=== PATIENT | female | born 1955 | race Caucasian/White ===

== ENCOUNTER 2018-01-02 13:06 | Inpatient (IN) ==
[2018-01-02] MEDS ORDERED: Ondansetron ODT 4 MG TAB.RAPDIS SL PRN (17:19)
[2018-01-02] MEDS ORDERED: Magic Mouthwash 10 ML UD Cup PO PRN (17:24)
[2018-01-02] MEDS ORDERED: Sennosides 8.6 MG TABLET PO PRN (17:28)
[2018-01-02] MEDS ORDERED: Acetaminophen 650 MG RECTAL SUPP RC PRN (17:30)
[2018-01-02] MEDS ORDERED: Bisacodyl 10 MG RECTAL SUPPOSITORY RC PRN (17:32)
[2018-01-02] MEDS ORDERED: Hyoscyamine SL 0.125 MG TAB.SUBL SL PRN (17:34)
[2018-01-02] MEDS: *HR* Morphine Sulfate SR (12 HR) 30 MG TABLET.ER PO SCH (20:00)
[2018-01-02] MEDS: Ipratropium/Albuterol Neb 3 ML IH PRN (20:17)
[2018-01-03] MEDS: ALPRAZolam 1 MG TABLET PO PRN ×2 (03:50→11:02)
[2018-01-03] MEDS: MORPHINE SUL Oral CONC 10 MG/0.5 ML ORAL.SYG PO PRN ×4 (03:50→16:51)
[2018-01-03] MEDS: Ipratropium/Albuterol Neb 3 ML IH PRN (04:06)
[2018-01-03] MEDS: *HR* Morphine Sulfate SR (12 HR) 30 MG TABLET.ER PO SCH ×2 (10:56→21:04)
[2018-01-04] MEDS: MORPHINE SUL Oral CONC 10 MG/0.5 ML ORAL.SYG PO PRN ×3 (03:50→18:33)
[2018-01-04] MEDS: *HR* Morphine Sulfate SR (12 HR) 30 MG TABLET.ER PO SCH ×2 (08:00→21:04)
[2018-01-04] MEDS: ALPRAZolam 1 MG TABLET PO PRN ×2 (12:56→19:42)
[2018-01-04] MEDS: Ipratropium/Albuterol Neb 3 ML IH PRN (19:55)
[2018-01-05] MEDS: ALPRAZolam 1 MG TABLET PO PRN ×2 (03:05→16:37)
[2018-01-05] MEDS: MORPHINE SUL Oral CONC 10 MG/0.5 ML ORAL.SYG PO PRN ×7 (03:06→21:07)
[2018-01-05] MEDS: *HR* Morphine Sulfate SR (12 HR) 30 MG TABLET.ER PO SCH ×2 (08:47→20:52)
[2018-01-06] MEDS: ALPRAZolam 1 MG TABLET PO PRN ×3 (00:23→14:56)
[2018-01-06] MEDS: MORPHINE SUL Oral CONC 10 MG/0.5 ML ORAL.SYG PO PRN ×10 (00:24→21:54)
[2018-01-06] MEDS: *HR* Morphine Sulfate SR (12 HR) 30 MG TABLET.ER PO SCH ×3 (11:02→21:51)
[2018-01-06] MEDS: Benzonatate 100 MG CAPSULE PO PRN (12:32)
[2018-01-06] MEDS: Ipratropium/Albuterol Neb 3 ML IH PRN (12:53)
[2018-01-07] MEDS: MORPHINE SUL Oral CONC 10 MG/0.5 ML ORAL.SYG PO PRN ×5 (00:12→15:39)
[2018-01-07] MEDS: *HR* LORazepam Oral Conc 2 MG/ML PO PRN ×2 (00:12→15:39)
[2018-01-07] MEDS: ALPRAZolam 1 MG TABLET PO SCH ×3 (11:05→13:03)
[2018-01-07 11:06] VITALS: BP 97/56
[2018-01-07] MEDS ORDERED: Atropine Sulfate 1% 40 DROP/2 ML BOTTLE SL PRN (12:18)
[2018-01-07] MEDS: Benzonatate 100 MG CAPSULE PO PRN (13:02)
[2018-01-07] MEDS: *HR* Morphine Sulfate SR (12 HR) 30 MG TABLET.ER PO SCH (13:03)
== END 2018-01-07 18:00 | disposition hospice, home (50) | DRG 190 ==
LOC: INPPIK 14:27
PROVIDERS: ADMIT Internal Medicine; ATTEND Internal Medicine